=== PATIENT | female | born 1945 | race African-American/Black ===

== ENCOUNTER 2017-07-23 12:50 | Observation (INO) | payer MEDICARE, MEDICAID ==
[~2017-07-23] VITALS: Ht 172.7 cm; Wt 79.2 kg
[~2017-07-23 12:50] MED LIST: AMLODIPINE5 MG PO; ASPIRIN81 MG PO; BENAZEPRIL10 MG PO; CITALOPRAM10 MG PO; FENTANYL50 MCG/HR TD; GABAPENTIN300 MG PO; HYDRALAZINE25 MG PO; HYDROCO/APAP1 TA9 PO; LORAZEPAM0.5 MG PO; MECLIZINE25 MG PO; PREDNISONE20 MG PO; PROAIR HFA IN; SIMVASTATIN10 MG PO; TIZANIDINE4 MG PO; VITAMIN D50000 UNT PO
[2017-07-23 14:14] LABS: HEMATOCRIT 41.2 % (37.0-47.0); HEMOGLOBIN 12.8 g/dl (12.0-16.0); IMMATURE GRANULOCYTES 0.9 % (0.0-1.0); MEAN CELL VOLUME 96.9 fL CALC (80.0-100.0); MEAN CORPUSCULAR HGB 30.1 pG CALC (26.0-32.0); MEAN CORPUSCULAR HGB CONC 31.1 g/L CALC (32.0-36.0); NEUT# 3.14 thou/uL (2.00-7.15); RED BLOOD COUNT 4.25 mill/uL (4.20-5.60); RED CELL DISTRI WIDTH 12.5 % (11.5-15.5)
[2017-07-23] MEDS ORDERED: KRISTALOSE10 GM PO (14:36)
[2017-07-23 14:38] LABS: ALBUMIN 4.3 g/dL (3.2-5.0); BILIRUBIN, TOTAL 0.6 mg/dL (0.0-1.4); CALCIUM 9.9 mg/dL (8.4-10.2); CREATININE 1.8 mg/dL (0.5-1.0); POTASSIUM 4.9 mmol/l (3.5-5.1); TOTAL PROTEIN 7.7 g/dL (6.3-8.2)
[2017-07-23] MEDS ORDERED: BETAMETH DIP0.052 EX (14:39)
[2017-07-23] MEDS ORDERED: CHLORTHALID25 MG PO (14:41)
[2017-07-23] MEDS ORDERED: NIFEDIPINE60 MG PO (14:41)
[2017-07-23] MEDS ORDERED: SINGULAIR10 MG PO (14:42)
[2017-07-23] MEDS ORDERED: PROTONIX40 M2 PO (14:43)
[2017-07-23] MEDS ORDERED: PREDNISONE5 MG PO (14:44)
[2017-07-23 16:20] VITALS: BP 149/81
[2017-07-23 19:35] VITALS: BP 155/77
[2017-07-23 23:51] VITALS: BP 106/62
[2017-07-24] VITALS (8 sets, daily range): BP systolic 78–126; BP diastolic 48–80
[2017-07-24 06:04] LABS: HEMATOCRIT 38.2 % (37.0-47.0); HEMOGLOBIN 12.6 g/dl (12.0-16.0); MEAN CELL VOLUME 94.8 fL CALC (80.0-100.0); MEAN CORPUSCULAR HGB 31.3 pG CALC (26.0-32.0); RED BLOOD COUNT 4.03 mill/uL (4.20-5.60); RED CELL DISTRI WIDTH 12.4 % (11.5-15.5)
[2017-07-24 06:20] LABS: CHOLESTEROL HDL RATIO 4.6 (<4.4 (CALC))
[2017-07-25 04:53] VITALS: BP 98/59
[2017-07-25 05:24] LABS: HEMATOCRIT 33.1 % (37.0-47.0); HEMOGLOBIN 10.6 g/dl (12.0-16.0); IMMATURE GRANULOCYTES 0.7 % (0.0-1.0); MEAN CELL VOLUME 94.6 fL CALC (80.0-100.0); MEAN CORPUSCULAR HGB 30.3 pG CALC (26.0-32.0); NEUT# 1.8 thou/uL (2.00-7.15); RED BLOOD COUNT 3.5 mill/uL (4.20-5.60); RED CELL DISTRI WIDTH 12.3 % (11.5-15.5)
[2017-07-25 05:32] LABS: POTASSIUM 4.7 mmol/l (3.5-5.1)
[2017-07-25 08:02] VITALS: BP 116/77
[2017-07-25 11:06] VITALS: BP 134/80
[2017-07-25 15:15] VITALS: BP 154/80
[2017-07-25 18:00] VITALS: BP 133/79
[2017-07-26] VITALS: BP 150/87
[2017-07-26 04:00] VITALS: BP 162/80
[2017-07-26 05:37] LABS: HEMATOCRIT 32.2 % (37.0-47.0); HEMOGLOBIN 10.2 g/dl (12.0-16.0); IMMATURE GRANULOCYTES 0.7 % (0.0-1.0); MEAN CELL VOLUME 95.8 fL CALC (80.0-100.0); MEAN CORPUSCULAR HGB 30.4 pG CALC (26.0-32.0); MEAN CORPUSCULAR HGB CONC 31.7 g/L CALC (32.0-36.0); NEUT# 1.56 thou/uL (2.00-7.15); RED BLOOD COUNT 3.36 mill/uL (4.20-5.60); RED CELL DISTRI WIDTH 12.3 % (11.5-15.5)
[2017-07-26 05:57] LABS: CALCIUM 8.9 mg/dL (8.4-10.2); CREATININE 1.3 mg/dL (0.5-1.0); POTASSIUM 4.7 mmol/l (3.5-5.1)
[2017-07-26 07:56] VITALS: BP 173/85
[2017-07-26 11:18] VITALS: BP 163/83
== END 2017-07-26 12:25 | disposition home or self-care (01) ==
LOC: ED 12:50 → ED-I 14:51 → ED 15:17 → MS2 15:18
PROVIDERS: Emergency Medicine; Internal Medicine; ADMIT Internal Medicine; ATTEND Internal Medicine
DX: M94.0 Chondrocostal junction syndrome [Tietze] (principal); N17.9 Acute kidney failure, unspecified; M35.3 Polymyalgia rheumatica; I12.9 Hypertensive chronic kidney disease with stage 1 through stage 4 chronic kidney disease, or unspecified chronic kidney disease; N18.3 Chronic kidney disease, stage 3 (moderate); D63.1 Anemia in chronic kidney disease; I95.9 Hypotension, unspecified; J01.90 Acute sinusitis, unspecified; M19.90 Unspecified osteoarthritis, unspecified site; J44.9 Chronic obstructive pulmonary disease, unspecified; E86.0 Dehydration; F32.9 Major depressive disorder, single episode, unspecified; F41.9 Anxiety disorder, unspecified; F17.210 Nicotine dependence, cigarettes, uncomplicated; E78.5 Hyperlipidemia, unspecified; R07.9 Chest pain, unspecified

== ENCOUNTER 2017-11-29 10:11 | Emergency (ER) | payer MEDICARE, MEDICAID ==
[~2017-11-29] VITALS: Ht 172.7 cm; Wt 86.8 kg
[~2017-11-29 10:11] MED LIST changes: +BETAMETH DIP0.052 EX; +CHLORTHALID25 MG PO; +KRISTALOSE10 GM PO; +NIFEDIPINE60 MG PO; +PREDNISONE5 MG PO; +PROTONIX40 M2 PO; +SINGULAIR10 MG PO
[2017-11-29] MEDS ORDERED: NAPROXEN DR500 MG PO (10:31)
[2017-11-29] MEDS ORDERED: FLEXERIL PO (10:31)
[2017-11-29 11:00] VITALS: BP 170/70
== END 2017-11-29 11:00 | disposition home or self-care (01) ==
LOC: ED 10:11
DX: M54.32 Sciatica, left side (principal); M48.00 Spinal stenosis, site unspecified; I10 Essential (primary) hypertension; M19.90 Unspecified osteoarthritis, unspecified site; F17.210 Nicotine dependence, cigarettes, uncomplicated

== ENCOUNTER → 2018-05-04 | Outpatient (REF) | payer MEDICARE, MEDICAID ==
[~2018-05-04] MED LIST changes: +FLEXERIL PO; +NAPROXEN DR500 MG PO
[2018-05-04 11:41] LABS: HEMATOCRIT 37.4 % (37.0-47.0); HEMOGLOBIN 11.8 g/dl (12.0-16.0); IMMATURE GRANULOCYTES 1.6 % (0.0-5.0); MEAN CELL VOLUME 96.1 fL CALC (80.0-100.0); MEAN CORPUSCULAR HGB 30.3 pG CALC (26.0-32.0); MEAN CORPUSCULAR HGB CONC 31.6 g/L CALC (32.0-36.0); NEUT# 3.29 thou/uL (2.00-7.15); RED BLOOD COUNT 3.89 mill/uL (4.20-5.60); RED CELL DISTRI WIDTH 13.2 % (11.5-15.5)
[2018-05-04 11:43] LABS: URINE BILIRUBIN - DIPSTICK NEGATIVE (NEGATIVE); URINE BLOOD DIPSTICK NEGATIVE (NEGATIVE); URINE COLOR YELLOW; URINE GLUCOSE - DIPSTICK NEGATIVE (NEGATIVE); URINE KETONE NEGATIVE (NEGATIVE); URINE NITRITE - DIPSTICK NEGATIVE (Negative); URINE PH 5.5 (4.5-8.0); URINE PROTEIN - DIPSTICK NEGATIVE (NEG-TRACE); URINE UROBILINOGEN - DIPSTICK 0.2 E.U./dL (0.2)
[2018-05-04 11:44] LABS: URINE CLARITY CLEAR; URINE LEUK ESTERASE SMALL (NEGATIVE)
[2018-05-04 11:57] LABS: ALBUMIN 3.7 g/dL (3.2-5.0); ALKALINE PHOSPHATASE 85 u/l (38-126); ANION GAP 11 (6-22 (CALC)); BILIRUBIN, TOTAL 0.4 mg/dL (0.0-1.4); BUN 20 mg/dL (8-23); BUN/CREATININE RATIO 20 (12-20 (CALC)); CALCULATED LDLCHOLESTEROL 72 mg/dL (62-129 (CALC)); CARBON DIOXIDE 27 mmol/l (22-30); CHLORIDE 109 mmol/l (95-108); CHOLESTEROL HDL RATIO 2.3 (<4.4 (CALC)); GFR 54 ML/MIN (>=60 (CALC)); GFR FOR AFR.AMER. > 60 ML/MIN (>=60 (CALC)); HDL CHOLESTEROL 74 mg/dL (>=40); POTASSIUM 4.3 mmol/l (3.5-5.1); SGOT/AST 21 u/l (9-36); SODIUM 143 mmol/l (137-146); TOTAL CHOLESTEROL 169 mg/dl (0-199); TOTAL PROTEIN 6.8 g/dL (6.3-8.2); TOTAL TRIGLYCERIDES 116 mg/dl (30-149); VLDL CHOLESTROL 23 mg/dl (0-48 (CALC))
[2018-05-04 12:05] LABS: URINE BACTERIA FEW hpf
[2018-05-04 12:06] LABS: URINE SQUAMOUS EPITHELIAL CELL FEW EPI/hpf (0-FEW)
[2018-05-04 12:09] LABS: URINE YEAST FEW hpf
[2018-05-04 12:25] LABS: TSH, 3RD GENERATION 2.09 uIU/mL (0.47 - 4.68)
== END | disposition home or self-care (01) ==
LOC: LAB 11:02
PROVIDERS: ATTEND Nurse Practitioner Adult Health
DX: I10 Essential (primary) hypertension (principal); N18.3 Chronic kidney disease, stage 3 (moderate); M25.50 Pain in unspecified joint

== ENCOUNTER 2018-08-28 13:26 | Emergency (ER) | payer MEDICARE, MEDICAID ==
[~2018-08-28] VITALS: Ht 172.7 cm; Wt 87.0 kg
[2018-08-28] MEDS ORDERED: MONTELUKAST SOD10 MG PO (14:08)
[2018-08-28] MEDS ORDERED: PREDNISONE5 MG PO (14:09)
[2018-08-28] MEDS ORDERED: OXYMORPHONE HYD30 MG PO (14:09)
[2018-08-28] MEDS ORDERED: BACLOFEN20 MG PO (14:09)
[2018-08-28] MEDS ORDERED: OXYCODONE HCL30 MG PO (14:10)
[2018-08-28] MEDS ORDERED: ROSUVASTATIN CA20 MG PO (14:10)
[2018-08-28] MEDS ORDERED: GABAPENTIN300 M2 PO (14:10)
[2018-08-28] MEDS ORDERED: LOSARTAN POT50 MG PO (14:11)
[2018-08-28] MEDS ORDERED: NIFEDIPINE ER60 M1 PO (14:11)
[2018-08-28] MEDS ORDERED: CITALOPRAM HYDR10 MG PO (14:12)
[2018-08-28] MEDS ORDERED: PANTOPRAZOLE SO40 M1 PO (14:12)
[2018-08-28] MEDS ORDERED: PREDNISONE20 MG PO (14:23)
[2018-08-28 14:33] VITALS: BP 129/76
== END 2018-08-28 14:33 | disposition home or self-care (01) ==
LOC: ED 13:26
DX: M54.42 Lumbago with sciatica, left side (principal); M25.552 Pain in left hip; I10 Essential (primary) hypertension; R50.9 Fever, unspecified

== ENCOUNTER 2019-07-29 14:57 | Observation (INO) | payer MEDICARE, MEDICAID ==
[~2019-07-29] VITALS: Ht 172.7 cm; Wt 80.0 kg
[~2019-07-29 14:57] MED LIST changes: +BACLOFEN20 MG PO; +CITALOPRAM HYDR10 MG PO; +GABAPENTIN300 M2 PO; +LOSARTAN POT50 MG PO; +MONTELUKAST SOD10 MG PO; +NIFEDIPINE ER60 M1 PO; +OXYCODONE HCL30 MG PO; +PANTOPRAZOLE SO40 M1 PO; +ROSUVASTATIN CA20 MG PO; +[UNRECOGNIZED DRUG - OTHER] PO
[2019-07-29 16:37] LABS: HEMATOCRIT 36.1 % (37.0-47.0); HEMOGLOBIN 11.4 g/dl (12.0-16.0); IMMATURE GRANULOCYTES 0.5 % (0.0-5.0); MEAN CELL VOLUME 91.4 fL CALC (80.0-100.0); MEAN CORPUSCULAR HGB 28.9 pG CALC (26.0-32.0); MEAN CORPUSCULAR HGB CONC 31.6 g/L CALC (32.0-36.0); NEUT# 3.6 thou/uL (2.00-7.15); RED BLOOD COUNT 3.95 mill/uL (4.20-5.60); RED CELL DISTRI WIDTH 12.7 % (11.5-15.5)
[2019-07-29 16:50] LABS: ALKALINE PHOSPHATASE 95 u/l (38-126); AMYLASE 52 u/l (30-110); BUN 13 mg/dL (8-23); BUN/CREATININE RATIO 17 (12-20 (CALC)); CHLORIDE 105 mmol/l (95-108); CREATININE 0.7 mg/dL (0.5-1.0); GFR > 60 ML/MIN (>=60 (CALC)); GFR FOR AFR.AMER. > 60 ML/MIN (>=60 (CALC)); LIPASE 81 u/l (23-300); POTASSIUM 3.3 mmol/l (3.5-5.1); SGOT/AST 25 u/l (9-36); SODIUM 139 mmol/l (137-146); TOTAL PROTEIN 7.7 g/dL (6.3-8.2)
[2019-07-29 16:51] LABS: ANION GAP 15 (6-22 (CALC)); BILIRUBIN, TOTAL 0.7 mg/dL (0.0-1.4); CARBON DIOXIDE 22 mmol/l (22-30)
[2019-07-29 18:37] LABS: URINE BLOOD DIPSTICK NEGATIVE (NEGATIVE); URINE COLOR YELLOW; URINE GLUCOSE - DIPSTICK NEGATIVE (NEGATIVE); URINE KETONE >=80 mg/dL (NEGATIVE); URINE NITRITE - DIPSTICK NEGATIVE (Negative); URINE PROTEIN - DIPSTICK NEGATIVE (NEG-TRACE); URINE UROBILINOGEN - DIPSTICK 0.2 E.U./dL (0.2)
[2019-07-29 18:41] LABS: URINE BILIRUBIN - DIPSTICK MODERATE (NEGATIVE)
[2019-07-29 18:42] LABS: URINE LEUK ESTERASE TRACE (NEGATIVE)
[2019-07-29] MEDS ORDERED: METRONIDAZOL500 MG PO (19:27)
[2019-07-29] MEDS ORDERED: ONDANSETRON4 MG PO (19:27)
[2019-07-29 22:10] VITALS: BP 213/88
[2019-07-29 23:58] VITALS: BP 200/80
[2019-07-30 05:10] VITALS: BP 94/52
[2019-07-30 07:49] VITALS: BP 111/63
[2019-07-30 17:00] VITALS: BP 125/56
[2019-07-30 19:47] VITALS: BP 109/61
[2019-07-31 00:02] VITALS: BP 137/62
[2019-07-31 05:38] LABS: HEMATOCRIT 32.7 % (37.0-47.0); HEMOGLOBIN 10.2 g/dl (12.0-16.0); MEAN CELL VOLUME 92.6 fL CALC (80.0-100.0); MEAN CORPUSCULAR HGB 28.9 pG CALC (26.0-32.0); MEAN CORPUSCULAR HGB CONC 31.2 g/L CALC (32.0-36.0); RED BLOOD COUNT 3.53 mill/uL (4.20-5.60); RED CELL DISTRI WIDTH 13.2 % (11.5-15.5)
[2019-07-31 05:39] VITALS: BP 119/55
[2019-07-31 05:50] LABS: ALKALINE PHOSPHATASE 67 u/l (38-126); ANION GAP 11 (6-22 (CALC)); BILIRUBIN, TOTAL 0.5 mg/dL (0.0-1.4); BUN 12 mg/dL (8-23); BUN/CREATININE RATIO 13 (12-20 (CALC)); CARBON DIOXIDE 22 mmol/l (22-30); CHLORIDE 110 mmol/l (95-108); CREATININE 0.9 mg/dL (0.5-1.0); GFR > 60 ML/MIN (>=60 (CALC)); GFR FOR AFR.AMER. > 60 ML/MIN (>=60 (CALC)); POTASSIUM 3.5 mmol/l (3.5-5.1); SGOT/AST 21 u/l (9-36); SODIUM 139 mmol/l (137-146)
[2019-07-31 05:54] LABS: TOTAL PROTEIN 5.9 g/dL (6.3-8.2)
[2019-07-31 09:05] VITALS: BP 151/61
[2019-07-31 15:15] VITALS: BP 135/76
[2019-07-31 19:05] VITALS: BP 146/71
[2019-08-01 03:45] VITALS: BP 136/59
[2019-08-01 08:26] VITALS: BP 135/70
[2019-08-01] MEDS ORDERED: METRONIDAZOL500 MG PO (11:22)
[2019-08-01] MEDS ORDERED: CIPROFLOXACN500 MG PO (11:23)
[2019-08-01] MEDS ORDERED: FIRST-VANCOM25 MG/ML (11:24)
[2019-10-10] MEDS ORDERED: ALLEGRA180 MG PO (15:26)
[2019-10-10] MEDS ORDERED: CELEXA10 MG PO (15:26)
[2019-10-10] MEDS ORDERED: ALPRAZOLAM0.5 MG PO (15:26)
[2019-10-10] MEDS ORDERED: ASPIRIN81 MG PO (15:26)
[2019-10-10] MEDS ORDERED: CRESTOR20 MG PO (15:27)
[2019-10-10] MEDS ORDERED: LACTULOSE10 GM PO (15:27)
[2019-10-10] MEDS ORDERED: HYDRALAZINE50 MG PO (15:27)
[2019-10-10] MEDS ORDERED: MULTIVITAMIN PO (15:28)
[2019-10-10] MEDS ORDERED: LORAZEPAM0.5 MG PO (15:28)
[2019-10-10] MEDS ORDERED: LOSARTAN POTASS50 MG PO (15:28)
[2019-10-10] MEDS ORDERED: PROTONIX40 M2 PO (15:29)
[2019-10-10] MEDS ORDERED: SINGULAIR10 MG PO (15:29)
[2019-10-10] MEDS ORDERED: PROAIR HFA IN (15:29)
[2019-10-10] MEDS ORDERED: TRAZODONE50 MG PO (15:30)
== END 2019-08-01 13:24 | disposition home or self-care (01) ==
LOC: ED 14:57 → ED-I 15:51 → ED 20:03 → MS2 20:04
PROVIDERS: Emergency Medicine; Nurse Practitioner Family; ADMIT Internal Medicine; ATTEND Internal Medicine
DX: K57.32 Diverticulitis of large intestine without perforation or abscess without bleeding (principal); A04.72 Enterocolitis due to Clostridium difficile, not specified as recurrent; I16.0 Hypertensive urgency; I10 Essential (primary) hypertension; J44.9 Chronic obstructive pulmonary disease, unspecified; E78.5 Hyperlipidemia, unspecified; G56.91 Unspecified mononeuropathy of right upper limb; F41.9 Anxiety disorder, unspecified; F32.9 Major depressive disorder, single episode, unspecified; M48.00 Spinal stenosis, site unspecified; M19.90 Unspecified osteoarthritis, unspecified site; Z87.891 Personal history of nicotine dependence
CPT/HCPCS: G0378; J3370; Q9967

== ENCOUNTER 2020-01-11 07:51 | Day surgery (SDC) | payer MEDICARE, MEDICAID ==
[~2020-01-11 07:51] MED LIST changes: +ALLEGRA180 MG PO; +ALPRAZOLAM0.5 MG PO; +CELEXA10 MG PO; +CIPROFLOXACN500 MG PO; +CRESTOR20 MG PO; +FIRST-VANCOM25 MG/ML; +HYDRALAZINE50 MG PO; +LACTULOSE10 GM PO; +LOSARTAN POTASS50 MG PO; +METRONIDAZOL500 MG PO; +MULTIVITAMIN PO; +ONDANSETRON4 MG PO; +TRAZODONE50 MG PO
[2020-01-11 11:31] VITALS: BP 179/81
== END 2020-01-11 11:50 | disposition home or self-care (01) ==
LOC: ENDO 07:51
PROVIDERS: ATTEND Surgery
PROC: 0DBN8ZX Excision of Sigmoid Colon, Via Natural or Artificial Opening Endoscopic, Diagnostic (ICD-10-PCS; principal; 2020-01-11)
DX: Z12.11 Encounter for screening for malignant neoplasm of colon (principal); D12.5 Benign neoplasm of sigmoid colon; K57.30 Diverticulosis of large intestine without perforation or abscess without bleeding; K64.8 Other hemorrhoids; F17.210 Nicotine dependence, cigarettes, uncomplicated; Z86.010 Personal history of colon polyps; Z11.59 Encounter for screening for other viral diseases

== ENCOUNTER 2021-02-07 17:58 | Emergency (ER) | payer MEDICARE, MEDICAID ==
[~2021-02-07] VITALS: Ht 172.7 cm; Wt 95.0 kg
[2021-02-07 18:53] LABS: HEMATOCRIT 36.7 % (37.0-47.0); HEMOGLOBIN 11.1 g/dl (12.0-16.0); IMMATURE GRANULOCYTES 0.9 % (0.0-5.0); MEAN CELL VOLUME 99.2 fL CALC (80.0-100.0); MEAN CORPUSCULAR HGB CONC 30.2 g/dL CAL (32.0-36.0); NEUT# 4.17 thou/uL (2.00-7.15); RED BLOOD COUNT 3.7 mill/uL (4.20-5.60); RED CELL DISTRI WIDTH 13.4 % (11.5-15.5)
[2021-02-07 19:09] LABS: ALBUMIN 3.6 g/dL (3.2-5.0); ALKALINE PHOSPHATASE 80 u/l (38-126); AMYLASE 57 u/l (30-110); ANION GAP 10 (6-22 (CALC)); BILIRUBIN, TOTAL 0.3 mg/dL (0.0-1.4); BUN 17 mg/dL (8-23); BUN/CREATININE RATIO 18 (12-20 (CALC)); CARBON DIOXIDE 28 mmol/l (22-30); CHLORIDE 106 mmol/l (95-108); CREATININE 0.9 mg/dL (0.5-1.0); GFR > 60 ML/MIN (>=60 (CALC)); GFR FOR AFR.AMER. > 60 ML/MIN (>=60 (CALC)); LIPASE 228 u/l (23-300); POTASSIUM 3.7 mmol/l (3.5-5.1); SGOT/AST 25 u/l (9-36); SODIUM 141 mmol/l (137-146); TOTAL PROTEIN 6.7 g/dL (6.3-8.2)
[2021-02-07 20:04] LABS: URINE BILIRUBIN - DIPSTICK NEGATIVE (NEGATIVE); URINE BLOOD DIPSTICK NEGATIVE (NEGATIVE); URINE COLOR YELLOW; URINE GLUCOSE - DIPSTICK NEGATIVE (NEGATIVE); URINE KETONE NEGATIVE (NEGATIVE); URINE LEUK ESTERASE NEGATIVE (NEGATIVE); URINE PROTEIN - DIPSTICK NEGATIVE (NEG-TRACE); URINE SPECIFIC GRAVITY 1.015; URINE UROBILINOGEN - DIPSTICK 0.2 E.U./dL (0.2)
[2021-02-07 20:06] LABS: URINE NITRITE - DIPSTICK NEGATIVE (Negative)
[2021-02-07] MEDS ORDERED: PHENERGAN25 MG RE (20:58)
[2021-02-07] MEDS ORDERED: PROTONIX40 M2 PO (20:58)
[2021-02-07 21:15] VITALS: BP 177/84
== END 2021-02-07 21:42 | disposition home or self-care (01) ==
LOC: ED 17:58
DX: R10.13 Epigastric pain (principal); R10.12 Left upper quadrant pain; R11.2 Nausea with vomiting, unspecified; I10 Essential (primary) hypertension; F17.200 Nicotine dependence, unspecified, uncomplicated; Z90.49 Acquired absence of other specified parts of digestive tract; Z20.822 Contact with and (suspected) exposure to COVID-19
CPT/HCPCS: Q9967

== ENCOUNTER 2021-03-13 08:06 | Emergency (ER) | payer MEDICARE, MEDICAID ==
[~2021-03-13] VITALS: Ht 172.7 cm; Wt 83.0 kg
[~2021-03-13 08:06] MED LIST changes: +PHENERGAN25 MG RE
[2021-03-13 09:03] LABS: ALBUMIN 3.9 g/dL (3.2-5.0); ALKALINE PHOSPHATASE 75 u/l (38-126); BUN 10 mg/dL (8-23); BUN/CREATININE RATIO 10 (12-20 (CALC)); CARBON DIOXIDE 30 mmol/l (22-30); CHLORIDE 101 mmol/l (95-108); CREATININE 1.1 mg/dL (0.5-1.0); GFR 48 ML/MIN (>=60 (CALC)); GFR FOR AFR.AMER. 58 ML/MIN (>=60 (CALC)); MAGNESIUM 1.6 mg/dL (1.6-2.3); SGOT/AST 23 u/l (9-36); SODIUM 139 mmol/l (137-146); TOTAL PROTEIN 7.3 g/dL (6.3-8.2)
[2021-03-13 09:04] LABS: ANION GAP 11 (6-22 (CALC)); BILIRUBIN, TOTAL 0.5 mg/dL (0.0-1.4); HEMATOCRIT 37.5 % (37.0-47.0); HEMOGLOBIN 11.7 g/dl (12.0-16.0); IMMATURE GRANULOCYTES 0.3 % (0.0-5.0); MEAN CELL VOLUME 95.7 fL CALC (80.0-100.0); MEAN CORPUSCULAR HGB 29.8 pG CALC (26.0-32.0); MEAN CORPUSCULAR HGB CONC 31.2 g/dL CAL (32.0-36.0); NEUT# 3.41 thou/uL (2.00-7.15); POTASSIUM 2.7 mmol/l (3.5-5.1); RED BLOOD COUNT 3.92 mill/uL (4.20-5.60); RED CELL DISTRI WIDTH 12.9 % (11.5-15.5)
[2021-03-13 09:14] LABS: PROTHROMBIN TIME 10.6 SECONDS (9.0-12.5)
[2021-03-13 11:05] LABS: URINE BILIRUBIN - DIPSTICK NEGATIVE (NEGATIVE); URINE BLOOD DIPSTICK NEGATIVE (NEGATIVE); URINE COLOR YELLOW; URINE GLUCOSE - DIPSTICK NEGATIVE (NEGATIVE); URINE KETONE NEGATIVE (NEGATIVE); URINE LEUK ESTERASE NEGATIVE (NEGATIVE); URINE PROTEIN - DIPSTICK NEGATIVE (NEG-TRACE); URINE UROBILINOGEN - DIPSTICK 0.2 E.U./dL (0.2)
[2021-03-13 11:33] LABS: URINE NITRITE - DIPSTICK NEGATIVE (Negative)
[2021-03-13 17:58] VITALS: BP 127/62
== END 2021-03-13 19:10 | disposition short-term general hospital (02) ==
LOC: ED 08:06
PROVIDERS: Family Medicine
DX: M47.22 Other spondylosis with radiculopathy, cervical region (principal); I10 Essential (primary) hypertension; E78.5 Hyperlipidemia, unspecified; Z20.822 Contact with and (suspected) exposure to COVID-19
CPT/HCPCS: A9579; Q9967

== ENCOUNTER 2021-05-19 15:49 | Emergency (ER) | payer MEDICARE, MEDICAID ==
[~2021-05-19] VITALS: Ht 172.7 cm; Wt 80.0 kg
[2021-05-19 17:58] LABS: HEMATOCRIT 36.7 % (37.0-47.0); HEMOGLOBIN 11.3 g/dl (12.0-16.0); IMMATURE GRANULOCYTES 0.4 % (0.0-5.0); MEAN CELL VOLUME 97.3 fL CALC (80.0-100.0); MEAN CORPUSCULAR HGB CONC 30.8 g/dL CAL (32.0-36.0); NEUT# 6.12 thou/uL (2.00-7.15); RED BLOOD COUNT 3.77 mill/uL (4.20-5.60); RED CELL DISTRI WIDTH 13.3 % (11.5-15.5)
[2021-05-19 17:59] LABS: URINE BILIRUBIN - DIPSTICK NEGATIVE (NEGATIVE); URINE BLOOD DIPSTICK NEGATIVE (NEGATIVE); URINE COLOR YELLOW; URINE GLUCOSE - DIPSTICK NEGATIVE (NEGATIVE); URINE KETONE NEGATIVE (NEGATIVE); URINE LEUK ESTERASE TRACE (NEGATIVE); URINE PROTEIN - DIPSTICK NEGATIVE (NEG-TRACE); URINE SPECIFIC GRAVITY 1.025; URINE UROBILINOGEN - DIPSTICK 0.2 E.U./dL (0.2)
[2021-05-19 18:00] LABS: URINE NITRITE - DIPSTICK NEGATIVE (Negative)
[2021-05-19 18:15] LABS: ALBUMIN 4.2 g/dL (3.2-5.0); ALKALINE PHOSPHATASE 86 u/l (38-126); ANION GAP 10 (6-22 (CALC)); BILIRUBIN, TOTAL 0.5 mg/dL (0.0-1.4); BUN 11 mg/dL (8-23); BUN/CREATININE RATIO 12 (12-20 (CALC)); CARBON DIOXIDE 31 mmol/l (22-30); CHLORIDE 106 mmol/l (95-108); CREATININE 0.9 mg/dL (0.5-1.0); GFR > 60 ML/MIN (>=60 (CALC)); GFR FOR AFR.AMER. > 60 ML/MIN (>=60 (CALC)); SGOT/AST 26 u/l (9-36); SODIUM 143 mmol/l (137-146); TOTAL PROTEIN 7.8 g/dL (6.3-8.2)
[2021-05-19 18:20] LABS: POTASSIUM 3.6 mmol/l (3.5-5.1)
[2021-05-19 18:45] VITALS: BP 207/92
== END 2021-05-19 18:50 | disposition left against medical advice (07) ==
LOC: ED 15:49
DX: S00.83XA Contusion of other part of head, initial encounter (principal); S00.11XA Contusion of right eyelid and periocular area, initial encounter; S63.501A Unspecified sprain of right wrist, initial encounter; S00.511A Abrasion of lip, initial encounter; I10 Essential (primary) hypertension; F17.200 Nicotine dependence, unspecified, uncomplicated; W18.30XA Fall on same level, unspecified, initial encounter; Y92.007 Garden or yard of unspecified non-institutional (private) residence as the place of occurrence of the external cause

== ENCOUNTER 2021-10-22 18:36 | Emergency (ER) | payer MEDICARE, MEDICAID ==
[~2021-10-22] VITALS: Ht 172.7 cm; Wt 78.0 kg
[2021-10-22 19:12] VITALS: BP 239/99
[2021-10-22] MEDS ORDERED: GENTAMICIN SULF5 ML OS (19:51)
[2021-10-22] MEDS ORDERED: (None)3.5 GM OS (19:51)
[2021-10-22 20:23] VITALS: BP 231/104
[2021-10-22 20:31] VITALS: BP 232/99
[2021-10-22 20:42] VITALS: BP 232/99
== END 2021-10-22 20:42 | disposition home or self-care (01) ==
LOC: ED 18:36
DX: T51.2X1A Toxic effect of 2-Propanol, accidental (unintentional), initial encounter (principal); H10.212 Acute toxic conjunctivitis, left eye; I10 Essential (primary) hypertension; F17.200 Nicotine dependence, unspecified, uncomplicated

== ENCOUNTER 2022-07-13 11:21 | Observation (INO) | payer MEDICARE, MEDICAID ==
[~2022-07-13] VITALS: Ht 172.7 cm; Wt 74.0 kg
[~2022-07-13 11:21] MED LIST changes: +(None)3.5 GM OS; +GENTAMICIN SULF5 ML OS
[2022-07-13 11:55] VITALS: BP 132/64
[2022-07-13 12:00] VITALS: BP 114/68
--- NOTE | 2022-07-13 12:23 | NUR ---
PATIENT TO ROOM 10 VIA W/C.
[2022-07-13 12:30] VITALS: BP 128/62
[2022-07-13 12:37] LABS: IMMATURE GRANULOCYTES 1.1 % (0.0-5.0); MEAN CELL VOLUME 94.4 fL CALC (80.0-100.0); MEAN CORPUSCULAR HGB 30.5 pG CALC (26.0-32.0); MEAN CORPUSCULAR HGB CONC 32.3 g/dL CAL (32.0-36.0); NEUT# 2.37 thou/uL (2.00-7.15); RED BLOOD COUNT 3.21 mill/uL (4.20-5.60); RED CELL DISTRI WIDTH 13.2 % (11.5-15.5)
[2022-07-13 12:43] LABS: HEMATOCRIT 30.3 % (37.0-47.0); HEMOGLOBIN 9.8 g/dl (12.0-16.0)
[2022-07-13 12:59] LABS: ALBUMIN 3.4 g/dL (3.2-5.0); ALKALINE PHOSPHATASE 62 u/l (38-126); ANION GAP 13 (6-22 (CALC)); BILIRUBIN, TOTAL 0.5 mg/dL (0.0-1.4); BUN 17 mg/dL (8-23); BUN/CREATININE RATIO 12 (12-20 (CALC)); CARBON DIOXIDE 23 mmol/l (22-30); CHLORIDE 103 mmol/l (95-108); CREATININE 1.4 mg/dL (0.5-1.0); GFR FOR AFR.AMER. 44 ML/MIN (>=60 (CALC)); GFR OTHER RACES 36 ML/MIN (>=60 (CALC)); LIPASE 204 u/l (23-300); SGOT/AST 31 u/l (9-36); SODIUM 136 mmol/l (137-146); TOTAL PROTEIN 6.9 g/dL (6.3-8.2)
[2022-07-13 13:03] LABS: POTASSIUM 3.2 mmol/l (3.5-5.1)
[2022-07-13 13:09] LABS: MYOGLOBIN 52 ng/mL (0 - 62)
--- NOTE | 2022-07-13 13:55 | NUR ---
Just left floor ? xray?
--- NOTE | 2022-07-13 14:20 | NUR ---
IV site failed while in xray, left a/c
[2022-07-13 16:26] LABS: URINE BILIRUBIN - DIPSTICK NEGATIVE (NEGATIVE); URINE BLOOD DIPSTICK NEGATIVE (NEGATIVE); URINE COLOR YELLOW; URINE GLUCOSE - DIPSTICK NEGATIVE (NEGATIVE); URINE KETONE NEGATIVE (NEGATIVE); URINE LEUK ESTERASE NEGATIVE (NEGATIVE); URINE PROTEIN - DIPSTICK NEGATIVE (NEG-TRACE); URINE SPECIFIC GRAVITY 1.015; URINE UROBILINOGEN - DIPSTICK 0.2 E.U./dL (0.2)
[2022-07-13 16:27] LABS: URINE NITRITE - DIPSTICK NEGATIVE (Negative)
--- NOTE | 2022-07-13 17:42 | NUR ---
PATIENT TO ROOM 272 IN STABLE CONDITION. REPORT TO FLOOR RN. BELONGINGS WITH PATIENT. NO FURTHER QUESTIONS AT THIS TIME.
[2022-07-13 17:58] VITALS: BP 163/102
--- NOTE | 2022-07-13 18:01 | NUR ---
PT ARRIVED ON UNIT @ 1745 TRANSPORTED VIA STRETCHER BY ED RN MAKAYLA, REPORT GIVEN, PT TRANSFERRED TO BED WITH LITTLE ASSISTANCE AND SETTLED, C/O THROBBING HEADACHE AT 8/10 AT THIS TIME. ALERT AND ORIENTED X 4, ORIENTED TO ROOM AND CALL MARSHALL. IVF O.9 NS INFUSING TO SITE IN [facility], TELE MONITOR IN PLACE, WILL CONTINUE TO MONITOR.
[2022-07-13 18:14] VITALS: BP 126/56
[2022-07-13 19:21] VITALS: BP 100/46
--- NOTE | 2022-07-13 19:41 | NUR ---
PATIENT C/O NAUSEA, MADE AWARE, SEND ORDER TO [facility].
--- NOTE | 2022-07-13 20:00 | NUR ---
RECEIVED REPORT FROM NURSE BECKFORD, PATEINT RESTING IN BED, C/O BEING COLD. ON BEAR HUGGER TO KEEP WARM, WITH ONGOING IV NS@ 100CC/HR INFUSING WELL ON RAC, HOOKED ON TELEMETRY SR 85, LUNG SOUNDS CLEAR, ACTIVE BOWEL SOUNDS, LBM 07/13, CALL LIGHT IN REACH.
--- NOTE | 2022-07-14 | NUR ---
PATIENT IN BED, APPEARS TO BE SLEEPING NO DISCOMFORTS NOTED AT THIS TIME, CALL LIGHT IN REACH.
[2022-07-14 00:08] VITALS: BP 115/58
[2022-07-14 04:01] VITALS: BP 107/46
--- NOTE | 2022-07-14 04:04 | NUR ---
PATIENT ASSISTED TO BEDSIDE COMMODE, ASSISTED BACK IN BED, DENIES PAIN OR N/V, CURRENTLY RESTING EYES CLOSED, CALL LIGHT IN REACH.
[2022-07-14 05:17] LABS: HEMOGLOBIN 7.9 g/dl (12.0-16.0); MEAN CORPUSCULAR HGB 31.6 pG CALC (26.0-32.0); MEAN CORPUSCULAR HGB CONC 32.9 g/dL CAL (32.0-36.0); RED BLOOD COUNT 2.5 mill/uL (4.20-5.60); RED CELL DISTRI WIDTH 13.4 % (11.5-15.5)
[2022-07-14 05:25] LABS: CREATININE 1.3 mg/dL (0.5-1.0); MAGNESIUM 1.5 mg/dL (1.6-2.3)
[2022-07-14 05:32] LABS: POTASSIUM 4.4 mmol/l (3.5-5.1)
[2022-07-14 06:34] VITALS: BP 114/53
--- NOTE | 2022-07-14 08:00 | NUR ---
PT RESTING IN BED. ASSESSMENT COMPLETED. STATES NO PAIN. UPDATED PT ON CURRENT PLAN OF CARE. PT INDICATED UNDERSTANDING. TELE MONITOR IN PLACE. CONTINOUS MONTIORING PER ED. FALL/SAFTEY PRECAUTIO REINALDO PLACE, CALL LIGHT WITHIN REACH
--- NOTE | 2022-07-14 08:06 | NUR ---
Pt consented pneumococcal vaccination however, pt has previously received PPSV23 and PCV13 after 65 years of age. Additional pneumococcal vaccination not recommended.
--- NOTE | 2022-07-14 08:27 | NUR ---
The patient is screened for physical medicine intervention and may benefit from PT consult if medical agrees
[2022-07-14 10:30] VITALS: BP 114/55
--- NOTE | 2022-07-14 10:37 | NUR ---
CONFIRMED A PHYSICIAN CONSULTATION WITH DR CALHOUN AT 1036 HRS.
--- NOTE | 2022-07-14 12:00 | NUR ---
PT RESTING IN BED WATCHING TV. STATES NAUSEA HAS SUBSIDED. STATES NO OTHER NEEDS AT THIS TIME. FALL/SAFTEY PRECAUTION IN PLACE. CALL LIGHT WITHIN REACH
[2022-07-14 15:20] VITALS: BP 93/42
--- NOTE | 2022-07-14 16:00 | NUR ---
PT RESTING IN BED WATCHING TV. STATES NO PAIN. BREATHIGN EVEN AND AN DUNLABORED. FALL/SAFTEY PRECAUTION IN PLACE, CALL LIGHT WITHIN REACH.
[2022-07-14 18:56] VITALS: BP 103/49
--- NOTE | 2022-07-14 20:00 | NUR ---
REECIEVED REPORT FROM DAYSHIFT NURSE. PT LAYING SUPINE IN BED. PT DENIES ANY PAIN OR DISCOMFORT AT THIS TIME. PT ASSESSMENT COMPLETED AND IV SITE ASSESSED. IV SITE APPEARS HEALTHY WITH NORMAL SALINE RUNNING PER EMAR. PT ENCOURAGED TO DRINK NULYTELY AND INFORMED OF NPO STATUS AT MIDNIGHT. CALL LIGHT WITHIN REACH AND SAFETY PRECAUTIONS IN PLACE.
[2022-07-15] VITALS (8 sets, daily range): BP systolic 133–156; BP diastolic 41–76
--- NOTE | 2022-07-15 01:03 | NUR ---
PT IV IN RAC INFILTRATED. REMOVED WITH CATHETER INTACT. NEW IV STARTED BY NURSING WATER PUMP OPERATOR JEREMY, 22 LAC. PT LAYING SUPINE IN BED. DENIES ANY PAIN OR DISCOMFORT. CALL LIGHT WITHIN REACH AND SAFETY PRECAUTION IN PLACE.
--- NOTE | 2022-07-15 04:15 | NUR ---
PT LAYING SUPINE IN BED. NO COMPLAINT OF PAIN OR DISCOMFORT. CALL LIGHT WITHIN REACH AND SAFETY PRECAUTIONS IN [place].
--- NOTE | 2022-07-15 04:16 | NUR ---
PT LAYING FOWLERS IN BED SLEEPING. NASAL CANNULA IN PLACE. NO S/S OF DISTRESS. CALL LIGHT WITHIN REACH AND SAFETY PRECAUTIONS IN PLACE.
[2022-07-15 05:29] LABS: CREATININE 1.1 mg/dL (0.5-1.0); POTASSIUM 3.8 mmol/l (3.5-5.1)
[2022-07-15 05:39] LABS: ALBUMIN 2.4 g/dL (3.2-5.0); BILIRUBIN, TOTAL 0.2 mg/dL (0.0-1.4); TOTAL PROTEIN 5.2 g/dL (6.3-8.2)
[2022-07-15 06:22] LABS: BASO% 0.3 % (0-3); EOS% 7.7 % (0-8); HEMATOCRIT 23.6 % (37.0-47.0); HEMOGLOBIN 7.6 g/dl (12.0-16.0); IMMATURE GRANULOCYTES 1.1 % (0.0-5.0); LYMPH% 33.2 % (15-41); MEAN CELL VOLUME 94.8 fL CALC (80.0-100.0); MEAN CORPUSCULAR HGB 30.5 pG CALC (26.0-32.0); MEAN CORPUSCULAR HGB CONC 32.2 g/dL CAL (32.0-36.0); MONO% 20.3 % (2-13); NEUT# 1.3 thou/uL (2.00-7.15); NEUT% 37.4 % (42-76); RED BLOOD COUNT 2.49 mill/uL (4.20-5.60); RED CELL DISTRI WIDTH 13.5 % (11.5-15.5)
--- NOTE | 2022-07-15 08:20 | NUR ---
PATIENT ALERT AND ORIENTED X3. RESTING STABLE IN BED AT THIS TIME. ASSESSMENT HEAD-TO TOE COMPLETE. PATIENT IS EDUCATED ABOUD MEDICATIONS, EGD/COLONOSCOPY FOR TODAY. PT NPO PAIN MANAGEMENT AND NURSING PLAN FOR TODAY. PATIENT REFER UNSERSTAND. SAFETY AND FALL PRECAUTIONS IN PLACE. CALL LIGHT WITHIN IN REACH.
--- NOTE | 2022-07-15 11:20 | NUR ---
Pt for Brigid this am, will hold treatment at this time.
--- NOTE | 2022-07-15 12:20 | NUR ---
RECEIVE PATIENT COME BACK FROM OR. POST EGD/COLONOSCOPY. REPORT FROM JEET VILA. PATIENT STABLE AT THIS TIME DOES NOT REFER TO PAIN OR DISCOMFORT AT THIS TIME. COMFORT IS PROVIDED AND THE ORDERS OF DR. CALHOUN AND THE POST OP PATIENT PROTOCOL.
--- NOTE | 2022-07-15 14:02 | NUR ---
Pt resting in bed had choly this am. She reported being tried. No treatment given at this time.
--- NOTE | 2022-07-15 16:47 | NUR ---
PT RESTING IN BED. STATES NO PAIN. FALL/SAFTEY PRECAUTION IN PLACE, CALL LIGHT WITHIN REACH.
--- NOTE | 2022-07-15 19:05 | NUR ---
RECEIVED REPORT FROM JULITO DEUTSCH.
--- NOTE | 2022-07-15 20:20 | NUR ---
PT ON BED SEMI FOWLERS, TALKING ON CELLPHONE: A&O X3. EVEN AND UNLABORED RERSPIRATIONS: CLEAR LUNG SOUNDS UPON AUSCULTATION. TELEMETRY IN PLACE. IV SITE HEALTHY AND PATENT. ACTIVE BOWEL SOUNDS X4 QUADRANTS. ARY HUGGER IN PLACE. SAFETY PRECAUTIONS IN PLACE WITH CALL LIGHT IN REACH.
--- NOTE | 2022-07-16 | NUR ---
PT RESTING WITH EYES CLOSED. NO DISTRESS OR PAIN NOTED. ARY HUGGER IN PLACE. NO VOICED NEEDS AT THIS TIME. SAFETY PRECAUTIONS IN PLACE WITH CALL LIGHT IN REACH.
[2022-07-16 04:12] VITALS: BP 158/69
--- NOTE | 2022-07-16 04:15 | NUR ---
PT RESTING ON BED. VS OBTAINED AT THIS TIME. IV SITE HEALTHY AND PATENT, INFUSING FLUIDS PER ORDER. NO DISTRESS OR PAIN NOTED. SAFETY PRECAUTIONS IN PLACE WITH CALL LIGHT IN REACH.
[2022-07-16 05:59] LABS: BASO% 0.2 % (0-3); EOS% 8.7 % (0-8); HEMATOCRIT 23.9 % (37.0-47.0); HEMOGLOBIN 7.9 g/dl (12.0-16.0); IMMATURE GRANULOCYTES 0.9 % (0.0-5.0); LYMPH% 33.3 % (15-41); MEAN CELL VOLUME 94.8 fL CALC (80.0-100.0); MEAN CORPUSCULAR HGB 31.3 pG CALC (26.0-32.0); MEAN CORPUSCULAR HGB CONC 33.1 g/dL CAL (32.0-36.0); MONO% 16.4 % (2-13); NEUT# 1.77 thou/uL (2.00-7.15); NEUT% 40.5 % (42-76); RED BLOOD COUNT 2.52 mill/uL (4.20-5.60); RED CELL DISTRI WIDTH 13.6 % (11.5-15.5)
[2022-07-16 06:08] LABS: ALBUMIN 2.6 g/dL (3.2-5.0); ALKALINE PHOSPHATASE 53 u/l (38-126); ANION GAP 12 (6-22 (CALC)); BUN 4 mg/dL (8-23); BUN/CREATININE RATIO 4 (12-20 (CALC)); CARBON DIOXIDE 20 mmol/l (22-30); CHLORIDE 116 mmol/l (95-108); GFR FOR AFR.AMER. > 60 ML/MIN (>=60 (CALC)); GFR OTHER RACES 54 ML/MIN (>=60 (CALC)); POTASSIUM 4.1 mmol/l (3.5-5.1); SGOT/AST 25 u/l (9-36); SODIUM 143 mmol/l (137-146); TOTAL PROTEIN 5.4 g/dL (6.3-8.2)
[2022-07-16 06:20] LABS: BILIRUBIN, TOTAL 0.3 mg/dL (0.0-1.4)
[2022-07-16 07:15] VITALS: BP 157/61
--- NOTE | 2022-07-16 07:30 | NUR ---
BEDSIDE CHANGE OF SHIFT REPORT, PT AWAKE ALERT AND ORIENTED RESTING IN BED, NO C/O DISCOMFORT AT THIS TIME, TELE MOITOR IN PLACE, CALL MARSHALL IN REACH AND BED LOCKED IN LOWEST POSITION.
[2022-07-16 09:59] VITALS: BP 180/77
[2022-07-16 10:03] VITALS: BP 172/75
[2022-07-16 10:36] VITALS: BP 144/65
[2022-07-16] MEDS ORDERED: AMLODIPINE BESYL5 MG PO (11:11)
--- NOTE | 2022-07-16 13:41 | NUR ---
Discharge instructions given. Patient verbalizes understanding of same. Discharged in fair condition via Wheelchair to Home with friend. All belongings sent with pt.
== END 2022-07-16 13:25 | disposition home health service (06) ==
LOC: ED 11:21 → ED-I 15:20 → ED 15:31 → MS2 15:32
PROVIDERS: Nurse Practitioner; Nurse Practitioner Family; ADMIT Internal Medicine; ATTEND Internal Medicine
PROC: 0DJD8ZZ Inspection of Lower Intestinal Tract, Via Natural or Artificial Opening Endoscopic (ICD-10-PCS; principal; 2022-07-15)
PROC: 0DB78ZX Excision of Stomach, Pylorus, Via Natural or Artificial Opening Endoscopic, Diagnostic (ICD-10-PCS; 2022-07-15)
DX: D62 Acute posthemorrhagic anemia (principal); E86.0 Dehydration; R62.7 Adult failure to thrive; R19.5 Other fecal abnormalities; K57.30 Diverticulosis of large intestine without perforation or abscess without bleeding; K64.8 Other hemorrhoids; K29.50 Unspecified chronic gastritis without bleeding; B96.81 Helicobacter pylori [H. pylori] as the cause of diseases classified elsewhere; I10 Essential (primary) hypertension; J44.9 Chronic obstructive pulmonary disease, unspecified; F32.A Depression, unspecified; F41.9 Anxiety disorder, unspecified; F17.200 Nicotine dependence, unspecified, uncomplicated; T46.5X6A Underdosing of other antihypertensive drugs, initial encounter; Z91.128 Patient's intentional underdosing of medication regimen for other reason; Z79.82 Long term (current) use of aspirin; Z68.24 Body mass index [BMI] 24.0-24.9, adult; Z20.822 Contact with and (suspected) exposure to COVID-19
CPT/HCPCS: G0328; J1650; J3475; Q9967; S0164